=== PATIENT | male | born 1990 | race Two or more races ===

== ENCOUNTER 2017-03-17 22:59 | Emergency (ER) | payer OTHER ==
[~2017-03-17] VITALS: Ht 180.3 cm; Wt 96.0 kg
[2017-03-18 00:07] LABS: BASOPHILS % (AUTO) 0.3 % (0-1); EOSINOPHILS # (AUTO) 0.2 X10'3 (0-0.9); EOSINOPHILS % (AUTO) 1.6 % (0-6); HEMATOCRIT 46.7 % (42.0-52.0); HEMOGLOBIN 15.3 g/dl (14.0-17.9); LYMPHOCYTES # (AUTO) 2.1 X10'3 (1.1-4.8); LYMPHOCYTES % (AUTO) 21.5 % (21-51); MEAN CORPUSCULAR HGB CONC 32.7 % (33.0-36.5); MEAN CORPUSCULAR VOLUME 82.7 FL (78-98); MEAN PLATELET VOLUME 8.2 FL (7.4-10.4); MONOCYTES # (AUTO) 0.7 X10'3 (0-0.9); MONOCYTES % (AUTO) 6.9 % (2-12); NEUTROPHILS # (AUTO) 6.8 X10'3 (1.8-7.7); NEUTROPHILS % (AUTO) 69.7 % (42-75); PLATELET COUNT 238 X10'3 (140-440); RED BLOOD COUNT 5.65 X10'6 (4.70-6.10); WHITE BLOOD COUNT 9.8 X10'3 (4.5-11.0)
[2017-03-18 00:22] LABS: ALANINE AMINOTRANSFERASE 65 U/L (12-78); ALBUMIN 4.3 G/DL (3.4-5.0); ALKALINE PHOSPHATASE 85 IU/L (46-116); ANION GAP 7 (8-16); ASPARTATE AMINO TRANSFERASE 34 U/L (10-37); BILIRUBIN,TOTAL 0.6 MG/DL (0.1-1.0); BLOOD UREA NITROGEN 21 MG/DL (7-18); BUN/CREATININE RATIO 21.4 (5.4-32.0); CALCIUM 10.1 MG/DL (8.5-10.1); CHLORIDE 105 MMOL/L (99-107); CREATININE 0.98 MG/DL (0.60-1.10); GLUCOSE 92 MG/DL (70-104); POTASSIUM 4.3 MMOL/L (3.5-5.1); SODIUM 143 MMOL/L (135-145); TOTAL CARBON DIOXIDE 31.2 MMOL/L (24-32); TOTAL PROTEIN 8.4 G/DL (6.4-8.2); eGFR > 90 ML/MIN
[2017-03-18 01:12] LABS: PROTHROMBIN TIME 10.3 SECONDS (9.0-12.0)
[2017-03-18 02:19] LABS: CLARITY,URINE Clear (Clear); COLOR,URINE Yellow (Yellow); GLUCOSE, URINE Negative (Neg); KETONES,URINE 40 mg/dl (Neg); LEUKOCYTE ESTERASE ,URINE Negative (Neg); NITRITES, URINE Negative (Neg); OCCULT BLOOD,URINE Moderate (Neg); PROTEIN,URINE Trace mg/dl (Neg)
[2017-03-18 02:21] LABS: UA COLLECTION TYPE VOIDED
[2017-03-18 02:29] LABS: CAL OXALATE CRYSTALS 1+ /HPF (NEGATIVE); MUCUS STRANDS MANY /LPF (Neg)
[2017-03-18 02:33] LABS: RBC,URINE 20-50 /HPF (0-2)
[2017-03-18 02:34] LABS: SQUAMOUS EPITHELIAL CELL,UR FEW /LPF (FEW)
[2017-03-18 02:35] LABS: BACTERIA,URINE FEW /HPF (Neg)
[2017-03-18] MEDS ORDERED: FLO0.4C PO (04:24)
[2017-03-18] MEDS ORDERED: IBUP-1986 PO (04:24)
[2017-03-18 04:28] VITALS: BP 117/75
== END 2017-03-18 04:31 | disposition home or self-care (01) ==
LOC: ER 23:01
DX: N20.0 Calculus of kidney (principal); F12.10 Cannabis abuse, uncomplicated; Z90.49 Acquired absence of other specified parts of digestive tract; Z98.890 Other specified postprocedural states
CPT/HCPCS: 36415; 74176; 80053; 81001; 85025; 85610; 87088; 99285

== ENCOUNTER 2019-09-19 09:31 | Emergency (ER) | payer SELFPAY ==
[~2019-09-19] VITALS: Ht 180.3 cm; Wt 84.0 kg
[~2019-09-19 09:31] MED LIST: IBUP-1986 PO
[2019-09-19 11:59] VITALS: BP 126/89
== END 2019-09-19 11:55 | disposition home or self-care (01) ==
LOC: ER 09:32
DX: R10.32 Left lower quadrant pain (principal); F12.90 Cannabis use, unspecified, uncomplicated; Z90.49 Acquired absence of other specified parts of digestive tract; Z72.89 Other problems related to lifestyle; Z79.899 Other long term (current) drug therapy
CPT/HCPCS: 76881; 99284